=== PATIENT | female | born 1955 | race Caucasian/White ===

== ENCOUNTER 2017-02-03 12:55 | Emergency (ER) | payer OTHER ==
[2017-02-03 13:07] VITALS: RESP 16
--- NOTE | 2017-02-03 13:45 | CPEKG ---
Heart Rate: 62 RR Interval: 968 P-R Interval: 156 QRSD Interval: 86 QT Interval: 440 QTC Interval: 447 P [place]: 41 QRS [place]: 45 T Wave [place]: 33 EKG Severity - NORMAL ECG - EKG Impression: SINUS RHYTHM Electronically Signed By: Alhaji Emanuel 05-Feb-2017 14:29:12
--- NOTE | 2017-02-03 13:50 | EDPHY ---
HPI/HX/ROS/PE/MDM Narrative: CHIEF COMPLAINT: HPI: This patient is a 61 year old female arriving with her complaining of confusion onset Friday afternoon, three days ago. She felt well that morning, and had attended an exercise class and gone to work. 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 She was able to converse with the airport shuttle driver at the time, but felt as if her brain was "scrambling to orient". This confusion lasted about 40 minutes. Friday, she was able to go for an hour long walk, but noted she was having difficulty finding basic words. Today, she returned to work but felt fatigued and experienced difficulty with routine computer use. She continues to not feel "sharp", and states she is generally good at managing many projects simultaneously, but has been feeling more overwhelmed. She denies having felt this way before. She denies any recent changes in medication or drug or alcohol use. She has had recent difficulty with her thyroid levels post-thyroid radiation, but states she has been stable since December. REVIEW OF SYSTEMS: Aside from elements discussed in the HPI, a comprehensive 10-point review of systems was reviewed and is negative. PMH: Thyroidectomy (Synthroid). Migraines. 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 PHYSICAL EXAM: General:Patient is alert, in no acute distress. ENT:Eyes are normal to inspection. ENT inspection normal. Neck: Normal inspection. Full range of motion. Respiratory:No respiratory distress. Breath sounds normal bilaterally. Cardiovascular: Regular rate and rhythm. Strong peripheral pulses. Normal cap refill. Abdomen:The abdomen is nontender to palpation. There are no peritoneal signs. There are normal bowel sounds. Back: Normal to inspection. No tenderness to palpation. Skin: Normal color. No rash. Warm and dry. Extremities: Normal appearance. Full range of motion. Neuro: Oriented x3. Normal motor function. Normal sensory function. Portions of this note were transcribed by an ED scribe. I personally performed the history, physical exam, and medical decision making; and confirm the accuracy of the information in the transcribed note. ED Course: Plan for labs including CBC, BMP, troponin. Plan for EKG, CT head. The 12 lead EKG was interpreted by myself. See hard copy and/or "tracemaster" electronic copy for interpretation. Sinus rhythm, rate 62. Labs unremarkable. EKG normal. 14:[address] Chambers, radiologist. Head CT normal, no intracranial hemorrhage or evidence of ischemia. Plan to discharge home in good condition. Referral to neurology provided. She will call for an appointment with her primary care provider this week. Return precautions discussed. The patient is comfortable with this plan. MDM: This patient presents with a transient alteration of awareness that occurred approximately two days ago and has since resolved. Her description of symptoms sounds frankly like an accidental marijuana ingestion, and patient agrees, but also adamantly denies any chance of this. We performed blood work and a CTH here in the ED which are normal. The patient has a normal detailed neurologic exam here today and is asymptomatic. I offered her MRI of the brain for further workup but she declines. The etiology of her symptoms is unknown. Complex migraine is a possibility, as is TGA. I will refer the patient to Neurology. Given absence of focality, I doubt TIA or CVA. - Data Points Imaging Results: Imaging Impressions Head CT 02/03/17 14:11 Impression: Normal brain. No intracranial hemorrhage or evidence of ischemia. Findings discussed with Emergency Department physician, Christopher Walsh MD at 02/03/2017 14:43. Laboratory Results: Laboratory Results 02/03/17 13:48 02/03/17 13:48 02/03/17 02/03/17 13:48 13:48 WBC 5.17 10^3/uL 10^3/uL (3.80-9.50) RBC 5.01 10^6/uL 10^6/uL (4.18-5.33) Hgb 15.9 g/dL g/dL (12.6-16.3) Hct 45.4 % % (38.0-47.0) MCV 90.6 fL fL (81.5-99.8) MCH 31.7 pg pg (27.9-34.1) MCHC 35.0 g/dL g/dL (32.4-36.7) RDW 11.7 % % (11.5-15.2) Plt Count 183 10^3/uL 10^3/uL (150-400) MPV 10.4 fL fL (8.7-11.7) Neut % (Auto) 56.0 % % (39.3-74.2) Lymph % (Auto) 33.3 % % (15.0-45.0) [place] % (Auto) 6.0 % % (4.5-13.0) Eos % (Auto) 3.1 % % (0.6-7.6) Baso % (Auto) 1.4 % % (0.3-1.7) Nucleat RBC Rel Count 0.0 % % (0.0-0.2) Absolute Neuts (auto) 2.90 10^3/uL 10^3/uL (1.70-6.50) Absolute Lymphs (auto) 1.72 10^3/uL 10^3/uL (1.00-3.00) Absolute Monos (auto) 0.31 10^3/uL 10^3/uL (0.30-0.80) Absolute Eos (auto) 0.16 10^3/uL 10^3/uL (0.03-0.40) Absolute Basos (auto) 0.07 10^3/uL 10^3/uL (0.02-0.10) Absolute Nucleated RBC 0.00 10^3/uL 10^3/uL (0-0.01) Immature Gran % 0.2 % % (0.0-1.1) Immature Gran # 0.01 10^3/uL 10^3/uL (0.00-0.10) Sodium 144 mEq/L mEq/L (134-144) Potassium 3.9 mEq/L mEq/L (3.5-5.2) Chloride 104 mEq/L mEq/L (97-110) Carbon Dioxide 27 mEq/l mEq/l (22-31) Anion Gap 13 mEq/L mEq/L (8-16) BUN 21 mg/dL mg/dL (7-23) Creatinine 0.9 mg/dL mg/dL (0.6-1.0) Estimated GFR > 60 Glucose 90 mg/dL mg/dL (70-100) Calcium 9.6 mg/dL mg/dL (8.5-10.4) Troponin I < 0.012 ng/mL ng/mL (0-0.034) Medications Given: Discontinued Medications Sodium Chloride (Ns) 1,000 mls @ 0 mls/hr IV ONCE ONE; Wide Open PRN Reason: Protocol Stop: 02/03/17 14:12 Last Admin: 02/03/17 14:39 Dose: 1,000 mls General Time Seen by Provider: 02/03/17 13:46 Initial Vital Signs: Initial Vital Signs Temperature (C) 36.4 C 02/03/17 13:03 Heart Rate 64 02/03/17 13:03 Respiratory Rate 16 02/03/17 13:03 Blood Pressure 123/79 H 02/03/17 13:03 O2 Sat (%) 96 02/03/17 13:03 O2 Delivery Mode Room Air Allergies/Adverse Reactions: tramadol Allergy (Verified 02/03/17 13:01) Home Medications: Medication Instructions Recorded Imitrex 02/03/17 Plaquenil 200 mg (*) 02/03/17 Premarin Vaginal (*) 02/03/17 Synthroid 02/03/17 Departure - Departure Disposition: Home, Routine, Self-Care Clinical Impression: Altered mental status Condition: Good Instructions: Altered Mental Status (ED) Additional Instructions: 1. Call your primary care provider today for an appointment later this week. 2. We have referred you to our neurologist software applications developer for continued evaluation. Please call for an appointment. 3. Return to the Emergency Department for confusion, headache, or worsening of condition. Referrals: Kenya Stovall MD [Primary Care Provider] - As per Instructions Jorge Lay DO [Doctor of Osteopathy] - As per Instructions Report Scribed for: Christopher Walsh Report Scribed by: Yadi Salazar Date of Report: 02/03/17 Time of Report: 13:50
[2017-02-03] MEDS ORDERED: NS 1,000 ML IV ONE (14:11)
[2017-02-03 14:16] LABS: % IMMATURE GRANULYOCYTES 0.2 % (0.0-1.1); ABSOLUTE IMMATURE GRANULOCYTES 0.01 10^3/uL (0.00-0.10); ADD DIFF? NO; ADD MORPH? NO; ADD SCAN? NO; ATYPICAL LYMPHOCYTE FLAG 0 (0-99); FRAGMENT RBC FLAG 0 (0-99); HEMATOCRIT 45.4 % (38.0-47.0); HEMOGLOBIN 15.9 g/dL (12.6-16.3); LEFT SHIFT FLG 0 (0-99); LIPEMIA HEMOLYSIS FLAG 90 (0-99); MEAN CELL HEMOGLOBIN 31.7 pg (27.9-34.1); MEAN CELL VOLUME 90.6 fL (81.5-99.8); MEAN PLATELET VOLUME 10.4 fL (8.7-11.7); PLATELET CLUMPS FLAG 0 (0-99); PLATELET COUNT 183 10^3/uL (150-400); RED BLOOD CELL COUNT 5.01 10^6/uL (4.18-5.33); RED CELL DISTRIBUTION WIDTH 11.7 % (11.5-15.2)
[2017-02-03 14:28] LABS: ANION GAP 13 mEq/L (8-16); CALCIUM 9.6 mg/dL (8.5-10.4); CARBON DIOXIDE 27 mEq/l (22-31); CHLORIDE 104 mEq/L (97-110); CREATININE 0.9 mg/dL (0.6-1.0); GLOMERULAR FILTRATION RATE > 60; GLUCOSE 90 mg/dL (70-100); POTASSIUM 3.9 mEq/L (3.5-5.2); SODIUM 144 mEq/L (134-144)
[2017-02-03 14:38] LABS: TROPONIN I < 0.012 ng/mL (0-0.034)
[2017-02-03 15:11] VITALS: BP 137/70; PULSE 67; TEMP 97.3; O2SAT 95
== END 2017-02-03 15:12 | disposition home or self-care (01) ==
DX: R41.82 Altered mental status, unspecified (principal); E86.9 Volume depletion, unspecified

== ENCOUNTER → 2017-03-04 | Outpatient (CLI) | payer OTHER | LOC: BMCIMAGING 14:56 | PROVIDERS: ATTEND Internal Medicine | DX: R51 Headache (principal) ==

== ENCOUNTER → 2017-06-03 | Outpatient (CLI) | payer OTHER | LOC: FIMAGING 07:06 | PROVIDERS: ATTEND Psychiatry & Neurology Neurology | DX: E07.9 Disorder of thyroid, unspecified (principal); G43.909 Migraine, unspecified, not intractable, without status migrainosus; R41.0 Disorientation, unspecified ==

== ENCOUNTER 2017-06-11 07:35 | Day surgery (SDC) | payer OTHER ==
[2017-06-11] MEDS ORDERED: NS 500 ML IV ONE (07:40)
[2017-06-11] MEDS ORDERED: fentaNYL 100 MCG/2 ML INJ IVP ONE (07:40)
[2017-06-11] MEDS ORDERED: MIDAZOLAM 2 MG/2 ML VIAL IVP ONE (07:40)
[2017-06-11] MEDS ORDERED: BENZOCAINE UNIT DOSE SPRAY HURRICAINE MM ONE (07:40)
[2017-06-11] MEDS ORDERED: ATROPINE SULFATE 1 MG/10 ML SYR ONE (08:48)
--- NOTE | 2017-06-11 08:53 | PDANEPAE ---
ANE Past Medical History - Cardiovascular History Hx Hypertension: No Hx Arrhythmias: No Hx Chest Pain: No Hx Coronary Artery / Peripheral Vascular Disease: No Hx CHF / Valvular Disease: No Hx Palpitations: No - Pulmonary History Hx COPD: No Hx Asthma/Reactive Airway Disease: No Hx Recent Upper Respiratory Infection: No Hx Oxygen in Use at Home: No Hx Sleep Apnea: No - Endocrine History Hx Diabetes: No Obesity: no - Neurological & Psychiatric Hx Hx Neurological and Psychiatric Disorders: Yes Neurological / Psychiatric History Comment: recent complaints of an episode of confusion ANE Review of Systems Review of Systems: ANE Patient History - Allergies Allergies/Adverse Reactions: tramadol Allergy (Verified 02/03/17 13:01) - Home Medications Home Medications: Imitrex 02/03/17 [Last Taken Unknown] Plaquenil 200 mg (*) 02/03/17 [Last Taken Unknown] Premarin Vaginal (*) 02/03/17 [Last Taken Unknown] Synthroid 02/03/17 [Last Taken Unknown] - Smoking Hx Smoking Status: Never smoked ANE Labs/Vital Signs - Vital Signs Height: 175.26 cm Weight: 68.492 kg ANE Physical Exam - Airway Neck exam: FROM Mallampati Score: Class 1 Mouth exam: normal dental/mouth exam - Pulmonary Pulmonary: no respiratory distress - Cardiovascular Cardiovascular: regular rate and rhythym - ASA Status ASA Status: II ANE Anesthesia Plan Anesthesia Plan: GA with mask
[2017-06-11] MEDS ORDERED: PROPOFOL 200 MG/20 ML VIAL ONE (09:16)
[2017-06-11] MEDS ORDERED: SUCCINYLCHOLINE CHLORIDE*ANESTHESIA ONLY*200 MG/10 ML SYR IVP ONE (09:17)
[2017-06-11] MEDS ORDERED: LIDOCAINE 1% 5 ML SDV ONE (09:17)
--- NOTE | 2017-06-11 10:20 | PDHPUP ---
History & Physical Update H&P update statement: This history and physical update is based on an assessment of the patient which was completed after admission or registration (within 24 hours), but prior to the surgery/procedure. H&P update: H&P reviewed & patient examined, no change in patient's condition since H&P completed
--- NOTE | 2017-06-12 17:01 | ECHO ---
[email or web address] [place] [id number] Main: [phone] Fax: Transthoracic Echocardiogram Name: REHANA MO MR#: [id number] Study Date: 06/11/2017 Study Time: 08:53 AM Date of : 1955 Age: 62 year(s) Height: ( ) Weight: ( ) BSA: Gender: Female Examination: MARTINE Indication: Eval for source of emboli/PFO vs ASD Image Quality: Contrast: Requested by: Gris Rebollar BP: 147 mmHg/100 mmHg Heart Rate: Rhythm: Indication: Eval for source of emboli/PFO vs ASD Procedure Staff Investor Relations Manager: Regine Valdez Physician: Gris Rebollar Requesting Provider: Measurements: Chambers Valvular Assessment AV/MV Valvular Assessment TV/PV Normal Normal Normal Name Value Range Name Value Range Name Value Range Continued Measurements: Findings: Left Ventricle: Normal global systolic LV function. Left Atrium: An agitated saline study was performed and was negative for intracardiac shunting. Aortic Valve: The aortic valve is tri-leaflet. Tricuspid Valve: Trivial tricuspid valve regurgitation. (No Signature Object) Patient: REHANA MO Study Date: 06/11/2017 Page 1 of 1 08:53 AM [id number]
== END 2017-06-11 10:44 | disposition home or self-care (01) ==
LOC: FCATH 07:35
PROVIDERS: ATTEND Internal Medicine Cardiovascular Disease
PROC: B246ZZ4 Ultrasonography of Right and Left Heart, Transesophageal (ICD-10-PCS; principal; 2017-06-11)
DX: Q21.1 Atrial septal defect (principal)
CPT/HCPCS: J0330; J0461; J2704

== ENCOUNTER → 2017-06-12 | Outpatient (CLI) | payer OTHER | LOC: FIMAGING 16:06 | PROVIDERS: ATTEND Internal Medicine | DX: Z12.31 Encounter for screening mammogram for malignant neoplasm of breast (principal) | CPT/HCPCS: G0202 ==

== ENCOUNTER → 2017-06-17 | Outpatient (CLI) | payer OTHER ==
--- NOTE | 2017-06-18 03:52 | CPEEG ---
[f rep st] ELECTROENCEPHALOGRAM DATE OF STUDY: 06/17/2017 INTERPRETATION: This 4-hour video EEG recording is normal. There were no potentially epileptogenic abnormalities present during the recording. During the video EEG monitoring session, the patient did not have any clinical events. REPORT: This 4-hour video EEG contains 10 Hz alpha activity to the posterior head regions. There wa s no abnormal activation at rest, during hyperventilation or photic stimulation. The patient became drowsy and fell into sustained sleep during the recording. During drowsiness and light sleep, the pa nallely had bitemporal theta frequency activity. This is a normal drowsy variant. There was no abnorm al activation during drowsiness, sleep, or during times of arousal. The patient did not have any cli nical events during the video EEG monitoring session. /[id number]/MODL
== END ==
LOC: FCPNEURO 07:41
PROVIDERS: ATTEND Psychiatry & Neurology Neurology
DX: G43.909 Migraine, unspecified, not intractable, without status migrainosus (principal); R41.0 Disorientation, unspecified; E07.9 Disorder of thyroid, unspecified

== ENCOUNTER → 2018-02-27 | Outpatient (CLI) | payer OTHER | LOC: FIMAGING 08:27 | PROVIDERS: ATTEND Internal Medicine | DX: M85.89 Other specified disorders of bone density and structure, multiple sites (principal); N64.4 Mastodynia; Z78.0 Asymptomatic menopausal state ==